=== PATIENT | female | born 1975 | race Hispanic/Latino ===

== ENCOUNTER 2020-08-18 08:21 | Emergency (ER) | payer SELFPAY ==
[2020-08-18] MEDS ORDERED: Ondansetron PF 4 MG/2 ML Vial ONE (08:50)
[2020-08-18] MEDS ORDERED: Morphine 4 MG/ML VIAL ONE (08:50)
[2020-08-18 09:19] LABS: Bilirubin Negative (Negative); Blood, Urine 3+ (Negative); Clarity Clear (Clear); Glucose, Urine (Dipstick) Normal (Negative); Ketone, Urine Negative (Negative); Leukocyte 25 Leu/uL (Negative); Nitrite Negative (Negative); Protein, Urine (Dipstick) 20 mg/dL (Neg-Trace); RBC/HPF 0-3 HPF (0-3); Specific Gravity, Urine 1.004 (1.002-1.036); Squamous Epithelial 0-3 HPF (0-3); Urobilinogen Normal mg/dL (Less than 2); WBC/HPF 0-3 HPF (0-3); pH, Urine 5.5 (5.0-9.0)
[2020-08-18 09:27] LABS: Bacteria/HPF 1+ HPF (None Seen)
[2020-08-18 09:30] LABS: Pregnancy Test - Urine (BHCG) Negative (Negative); Pregu Control Background? CLEAR/WHITE (CLR/WHITE); Pregu Control Bar Appear? YES (CONTROL BAR); Specific Gravity 1.004 (1.002-1.036)
[2020-08-18 09:32] LABS: #Basophils 0.1 thou/uL (0.0-0.2); #Eosinphils 0.1 thou/uL (0.0-0.7); #Lymphocytes 2.1 thou/uL (1.20-3.40); #Monocytes 0.5 thou/uL (0.11-0.59); #Neutrophils 5.2 thou/uL (1.40-6.50); %Basophils 0.7 % (0.0-1.0); %Eosinophils 1.5 % (0.0-10.0); %Lymphocytes 26.6 % (21.0-51.0); %Monocytes 5.7 % (0.0-10.0); %Neutrophils 65.4 % (42.0-75.0); Hemoglobin 9.9 g/dL (12.0-16.0); Mean Corpuscular HGB CONC 32.9 g/dL (32.0-36.0); Mean Platelet Volume 8.1 fL (7.4-10.4); Platelet Count 301 thou/uL (130-400); RBC Distribution Width 15.1 % (11.5-14.5); Red Blood Cell (RBC) Count 3.65 mill/uL (4.20-5.40)
[2020-08-18 09:51] LABS: ALT (SGPT) 24 U/L (8-55); AST (SGOT) 27 U/L (5-34); Albumin 3.8 g/dL (3.5-5.0); Alkaline Phosphatase 73 U/L (40-110); Anion Gap 13 mmol/L (10-20); BUN (Urea Nitrogen) 10 mg/dL (7.0-18.7); Bilirubin, Total 0.3 mg/dL (0.2-1.2); Calc. Creatinine Clearance 0 mL/min (70-130); Calcium 8.4 mg/dL (7.8-10.44); Carbon Dioxide 22 mmol/L (22-29); Chloride 107 mmol/L (98-107); Estimated GFR-MDRD 88; Globulin 2.9 g/dL (2.4-3.5); Glucose 99 mg/dL (70-105); Lipase 35 U/L (8-78); Protein, Total 6.7 g/dL (6.0-8.3); Sodium 138 mmol/L (136-145)
--- NOTE | 2020-08-18 11:03 | ULT ---
TRANSABDOMINAL AND TRANSVAGINAL PELVIC ULTRASOUND WITH SIERRA SCALE AND COLOR FLOW AND SPECTRAL DOPPLER IMAGING: Date: 08/18/2020 HISTORY: Pelvic pain. Right lower quadrant pain. Vaginal bleeding. FINDINGS: The right ovary measures 6.2 x 3.8 x 6.0 cm. The left ovary measures 3.2 x 3.9 x 1.8 cm. The uterus m easures 10.6 x 5.4 x 5.8 cm. The endometrium measures 1.6 cm in thickness. No uterine mass or endometrial fluid is seen. Flow is demonstrated to both ovaries. There is a complex cystic mass arising from the right ovary with solid mural nodule. This mass measur es about [id number]. No free fluid is noted. There is a small amount of fluid in the cervix. IMPRESSION: 1. Large complex cystic right ovarian mass is suspicious for neoplasm. 2. Thickening of the endometrium with a small amount of fluid in the cervix. 3. Gynecologic consultation is recommended. POS: AMINATA
[2020-08-21 21:11] LABS: Chlamydia by PCR Inconclusive (NotDetected); GC by PCR Inconclusive (NotDetected)
== END 2020-08-18 11:45 | disposition home or self-care (01) ==
LOC: ERS 08:21
DX: N93.8 Other specified abnormal uterine and vaginal bleeding (principal); D64.9 Anemia, unspecified; Z79.899 Other long term (current) drug therapy; M79.7 Fibromyalgia
CPT/HCPCS: 76856; 80053; 81003; 81015; 81025; 83690; 85025; 87480; 87491; 87510; 87591; 87660; 96361; 96374; 96375; J2270; J2405

== ENCOUNTER 2020-08-21 11:46 | Observation (INO) | payer SELFPAY ==
[~2020-08-21 11:46] MED LIST: Dexamethasone 20 MG/5 ML VIAL ONE; Glycopyrrolate 0.2 MG/ML 5 ML SYRINGE ONE; Lidocaine 1% PF 5 ML VIAL ONE; Ondansetron PF 4 MG/2 ML Vial ONE; PHENYLEPHRINE-NS 100 MCG/ML 10 ML SYRINGE ONE; PROPOFOL 200 MG/20 ML VIAL ONE; Rocuronium Bromide 10 MG/ML (10ML VIAL) ONE; Succinylcholine 200 MG/10 ml SYRINGE FS ONE; ePHEDrine 50 MG/ML VIAL ONE
[2020-08-21 13:31] LABS: #Basophils 0.1 thou/uL (0.0-0.2); #Eosinphils 0.1 thou/uL (0.0-0.7); #Lymphocytes 2.1 thou/uL (1.20-3.40); #Monocytes 0.3 thou/uL (0.11-0.59); #Neutrophils 6.9 thou/uL (1.40-6.50); %Basophils 0.8 % (0.0-1.0); %Eosinophils 0.7 % (0.0-10.0); %Lymphocytes 22.5 % (21.0-51.0); %Monocytes 3.5 % (0.0-10.0); %Neutrophils 72.5 % (42.0-75.0); Hemoglobin 8.2 g/dL (12.0-16.0); Mean Corpuscular HGB CONC 32.3 g/dL (32.0-36.0); Mean Corpuscular Hemoglobin 26.9 pg (27.0-31.0); Mean Corpuscular Volume 83.1 fL (78.0-98.0); Mean Platelet Volume 7.3 fL (7.4-10.4); Platelet Count 357 thou/uL (130-400); RBC Distribution Width 15.4 % (11.5-14.5); Red Blood Cell (RBC) Count 3.05 mill/uL (4.20-5.40); White Blood Cell (WBC) Count 9.4 thou/uL (4.8-10.8)
[2020-08-21 13:54] LABS: ALT (SGPT) 15 U/L (8-55); AST (SGOT) 19 U/L (5-34); Albumin 3.7 g/dL (3.5-5.0); Alkaline Phosphatase 69 U/L (40-110); Anion Gap 13 mmol/L (10-20); BUN (Urea Nitrogen) 6 mg/dL (7.0-18.7); Bilirubin, Total 0.3 mg/dL (0.2-1.2); Calc. Creatinine Clearance 0 mL/min (70-130); Calcium 8.1 mg/dL (7.8-10.44); Carbon Dioxide 22 mmol/L (22-29); Chloride 108 mmol/L (98-107); Globulin 2.8 g/dL (2.4-3.5); Glucose 96 mg/dL (70-105); Potassium 3.6 mmol/L (3.5-5.1); Protein, Total 6.5 g/dL (6.0-8.3); Sodium 139 mmol/L (136-145)
[2020-08-21] MEDS ORDERED: Morphine 4 MG/ML VIAL ONE (14:16)
[2020-08-21] MEDS ORDERED: Ondansetron PF 4 MG/2 ML Vial ONE (14:16)
[2020-08-21 14:39] LABS: Bacteria/HPF None Seen HPF (None Seen); Bilirubin Negative (Negative); Blood, Urine 3+ (Negative); Clarity Clear (Clear); Glucose, Urine (Dipstick) Normal (Negative); Ketone, Urine Negative (Negative); Leukocyte Negative Leu/uL (Negative); Nitrite Negative (Negative); Protein, Urine (Dipstick) Negative (Neg-Trace); RBC/HPF 21-50 HPF (0-3); Specific Gravity, Urine 1.006 (1.002-1.036); Squamous Epithelial 0-3 HPF (0-3); Urobilinogen Normal mg/dL (Less than 2); WBC/HPF 0-3 HPF (0-3)
[2020-08-21 14:42] LABS: Pregnancy Test - Urine (BHCG) Negative (Negative); Pregu Control Background? CLEAR/WHITE (CLR/WHITE); Pregu Control Bar Appear? YES (CONTROL BAR); Specific Gravity 1.006 (1.002-1.036)
[2020-08-21 14:44] LABS: Prothrombin Time 13.8 sec (12.0-14.7)
[2020-08-21 14:45] LABS: PTT 32.9 sec (22.9-36.1)
--- NOTE | 2020-08-21 15:27 | ULT ---
Exam: Pelvic ultrasound HISTORY: Right-sided ovarian/adnexal mass. Worsening pain and bleeding. COMPARISON: Pelvic ultrasound 08/18/2020 TECHNIQUE: Multiple grayscale and color Doppler images were obtained in a transabdominal pelvic ultra sound. Spectral analysis of the Doppler waveforms of the ovaries were performed. FINDINGS: CERVIX: Not well assessed on transabdominal imaging but grossly within normal limits where seen. UTERUS: Normal in size without focal abnormality. ENDOMETRIAL STRIPE: 13 mm which is within normal limits for a normal menstruating female patient. No fluid or fluid collection is seen in the endometrial canal. No free fluid is present. RIGHT OVARY: A 6.2 cm x 5.5 cm x 5.2 cm cystic mass is again seen in the right adnexal region, and th is mass previously measured 6.2 cm x 3.8 cm x 5.9 cm. Doppler evaluation does demonstrate arterial flow at the periphery of this cystic lesion likely related to flow in surrounding ovarian tissue in t his region. LEFT OVARY:Not visualized. Patient refused transvaginal imaging at this time due to pain. IMPRESSION: 1. Persistent right adnexal/ovarian mass. Neoplastic process is diagnosis of exclusion. 2. Nonvisualization left ovary. 3. Endometrial stripe measures 13 mm without fluid or fluid collection endometrial canal. Endometrial stripe thickness is within normal limits for normal menstruating female patient, but this is abnormal in thickness if this is a postmenopausal female patient. 4. Gynecological consultation is recommended if this has not been performed.
[2020-08-21] MEDS ORDERED: Lidocaine 1% w/Epinephrine 1:100K 20 ML VIAL ONE (18:03)
[2020-08-21] MEDS ORDERED: Bupivacaine 0.25% HCL 30 ML VIAL ONE (18:03)
[2020-08-21] MEDS ORDERED: Fentanyl 100 MCG/2 ML VIAL ONE ×3 (18:23→21:09)
[2020-08-21] MEDS ORDERED: Midazolam HCl 2 mg/2 ml Vial ONE (18:23)
[2020-08-21 18:55] LABS: SARS-CoV-2 NAA Rapid Test Not Detected (NotDetected)
[2020-08-21] MEDS ORDERED: HYDROcodone/Acetaminophen 5/325 mg Tablet ONE (21:50)
[2020-08-21] MEDS ORDERED: Ketorolac Tromethamine 30 MG/ML VIAL IVP PRN (22:37)
[2020-08-21] MEDS ORDERED: traMADol HCl 50 MG TAB PO PRN ×2 (22:39)
[2020-08-21] MEDS ORDERED: diphenhydrAMINE 50 MG/ML VIAL IVP PRN (22:42)
[2020-08-21] MEDS ORDERED: Ondansetron PF 4 MG/2 ML Vial IVP PRN (22:42)
--- NOTE | 2020-08-21 22:42 | PDOC.EVN ---
Event Note - Event Note Event Note: Pt is post surgical. Difficult to arouse. Otherwise stable. Will keep here tonight for pad counts, cbc in the morning and extended post surgical care. PT had a 1.7pt drop in hgb over two days. Will repeat in AM. Anticipate DC in morning.
[2020-08-21 23:30] VITALS: BMI 33.4
--- NOTE | 2020-08-22 00:57 | OP ---
DATE OF PROCEDURE: 08/21/2020 INDICATION: The patient is a 45-year-old female who was sent from clinic by Dr. Calixto to the emergency room for acute pelvic pain. She was there in the clinic for evaluation of abnormal uterine bleeding x6 weeks and pelvic pain that she had for 6 days. After receiving an endometrial biopsy, patient acutely noted worsening pain and was directed to the emergency room. Here, on evaluation in the emergency room, the patient was noted to have a 7 cm adnexal mass. Given the pain that she is experiencing, there was concern that she was experiencing ovarian torsion. Given that and her bleeding, the patient was taken to the operating room for evaluation and treatment. PREOPERATIVE DIAGNOSES: 1. Acute pelvic pain. 2. Adnexal mass. 3. Abnormal uterine bleeding. POSTOPERATIVE DIAGNOSES: 1. Acute pelvic pain. 2. Adnexal mass. 3. Abnormal uterine bleeding. PROCEDURE: Diagnostic laparoscopy with right oophorectomy and diagnostic hysteroscopy. ANESTHESIA: General. ESTIMATED BLOOD LOSS: Less than 25 mL. URINE OUTPUT: 400 mL. HYSTEROSCOPIC FLUID: Normal saline with accounted I's and O's. FINDINGS: Large right cystic adnexal mass without any definitive evidence of torsion. Absent tubes due to prior bilateral salpingectomy and normal-appearing uterus. SPECIMENS: Right ovary and cystic mass. COUNTS: Correct. COMPLICATIONS: None. DESCRIPTION OF PROCEDURE: Ms. Cardenas was placed in dorsal lithotomy position after being placed under general anesthesia. She was prepared and draped in a normal sterile fashion. Attention was placed vaginally where with the aid of an operative speculum, the cervix was identified. A single-tooth tenaculum was used to grasp the anterior lip of the cervix and a [employer] uterine manipulator was then inserted into the cervix. Attention was placed abdominally, where a 5 mm skin incision was made in the base of the umbilicus. A 12 mm incision was made in the suprapubic region and another 5 mm incision was made in the left lateral region of the pelvis. Veress needle was introduced into the base of the umbilicus with an entry pressure of 3 mmHg. The abdomen was insufflated with CO2 gas to 15 mmHg. A 5 mm port was then introduced with proper placement confirmed by laparoscope. An 11 mm trocar was then placed under direct visualization as was a left lateral port. The patient was then placed in steep Trendelenburg, removing the bowel from the pelvis. Immediately became visible was a large adnexal structure, primarily cystic, that was free of adhesions or evidence of torsion. Given that this is her second episode on this side, decision was made to perform an oophorectomy. Of note, there were no tubes. The majority of the tube was absent on both sides of the uterus. With a ligature device, the cyst and most of the ovary were ligated and transected. The cyst was then placed into a 10 mm EndoCatch bag intact, where it was then punctured and clear cystic fluid was then sucked out through the suction director facilities maintenance. The bag was then removed through the suprapubic port with some mild extension of the fascia given the size of the ovary and solid structure. Back to the inspection of the adnexal region showed good hemostasis. The left ovary appeared to be appropriate for age, reduced in size and volume, but without any evidence of concern. The uterus appeared smooth. Appendix did not appear visible. The liver edge was smooth. Once all this was visualized, the suprapubic fascial incision was then closed under direct visualization with a single stitch of 0 Vicryl and then the skin was closed with 4-0 Monocryl all three sites. Attention was then placed vaginally where hysteroscopy was performed to identify the uterine contents. Operative speculum was placed, and with a straight 0 degree hysteroscope with normal saline, the uterus was then visualized. Both ostia were seen. There appeared to be some shaggy endometrium, but no clear lesions. At this point, this was the completion of the procedure. The patient was extubated and taken to recovery room in stable condition. Job ID: [id number]
[2020-08-22 05:37] LABS: Hemoglobin 7.9 g/dL (12.0-16.0); Mean Corpuscular HGB CONC 33.3 g/dL (32.0-36.0); Mean Corpuscular Hemoglobin 27.5 pg (27.0-31.0); Mean Corpuscular Volume 82.7 fL (78.0-98.0); Mean Platelet Volume 7.6 fL (7.4-10.4); Platelet Count 340 thou/uL (130-400); RBC Distribution Width 15.2 % (11.5-14.5); Red Blood Cell (RBC) Count 2.88 mill/uL (4.20-5.40); White Blood Cell (WBC) Count 16.5 thou/uL (4.8-10.8)
[2020-08-22] MEDS ORDERED: Sodium Chloride 0.9% 10 ML ONE (05:45)
[2020-08-22 08:23] VITALS: BP 103/58; TEMP 98.2
[2020-08-22] MEDS ORDERED: FLU VACC QS2020-21(6MOS UP)/PF 60 MCG/0.5 ML SYRINGE IM ONE (09:00)
--- NOTE | 2020-08-22 19:36 | DIS ---
DATE OF ADMISSION: 08/21/2020 DATE OF DISCHARGE: 08/22/2020 ADMITTING DIAGNOSES: 1. Abnormal uterine bleeding with blood loss anemia. 2. Pelvic pain. 3. Adnexal mass. DISCHARGE DIAGNOSES: 1. Abnormal uterine bleeding with blood loss anemia. 2. Pelvic pain. 3. Adnexal mass. PROCEDURES: Diagnostic laparoscopy with right oophorectomy and hysteroscopy. CONSULTATIONS: None. HOSPITAL COURSE: The patient is a 45-year-old female re-presented to the emergency room after being seen in the clinic for acute abdominal pain. The patient's evaluation revealed a large right adnexal mass that is stable, but present as compared to another ER visit a few days prior. The patient continued to have heavy bleeding requiring 5 to 6 saturated pads a day for the previous month and had a hemoglobin drop over the 3-day period from 9.9 to 8.2. This morning, it has dropped to 7.9 over a subsequent almost 15 hours. For complete dropped details for the procedure, please refer to the operative note. Last night, the patient was transferred up to the floor for observation and pad counts given the amount of blood loss she has had and her anemia and for postop recovery. This morning, the patient is awake and alert. She has had food to eat. 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 Most recent vital signs, blood pressure is 101/59, pulse of 107, temperature 97.9, and respiratory rate of 20. In general, she appears to be in no acute distress. She is alert, oriented, cooperative, and pleasant to interact with. Her incisions are clean, dry, and intact. The patient is being discharged home. She has instructions to seek medical attention if she experiences fever, increasing pain, bleeding, redness, or drainage from her incision site. 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 She has also been counseled for lifting limits for few weeks as her suprapubic incision has required an intermittent stitch for proper closure. She will be following up with Dr. Calixto in 2 weeks, though significantly anemic at 7.9 and 23.8. It seems to have stabilized and clinically appears to be tolerable. I do not know her hemoglobin baseline as she presented with heavy bleeding. They have been going on for a month when she had a hemoglobin of 9.9. The patient will be instructed to be on iron for at least the next 6 months in an effort to restore iron stores and increase her hemoglobin back to normal. She will be going home on ibuprofen and tramadol for pain control. Job ID: [id number]
== END 2020-08-22 09:05 | disposition home or self-care (01) ==
LOC: ERS 11:46 → UNDOADMOB 15:53 → 3SE 15:53
PROVIDERS: ADMIT Family Medicine; ATTEND Family Medicine
PROC: 0UT04ZZ Resection of Right Ovary, Percutaneous Endoscopic Approach (ICD-10-PCS; principal; 2020-08-21)
PROC: 0UJD8ZZ Inspection of Uterus and Cervix, Via Natural or Artificial Opening Endoscopic (ICD-10-PCS; 2020-08-21)
DX: D27.0 Benign neoplasm of right ovary (principal); N83.8 Other noninflammatory disorders of ovary, fallopian tube and broad ligament; N93.9 Abnormal uterine and vaginal bleeding, unspecified; D62 Acute posthemorrhagic anemia; M79.7 Fibromyalgia; F32.9 Major depressive disorder, single episode, unspecified; Z79.899 Other long term (current) drug therapy; Z20.828 Contact with and (suspected) exposure to other viral communicable diseases
CPT/HCPCS: 36415; 76856; 80053; 81003; 81015; 81025; 85025; 85027; 85610; 85730; 86850; 86900; 86901; 88307; 93976; 96374; 96375; G0378; J1100; J1885; J2250; J2270; J2405; J2704; J3010; J3490; S0020; U0002

== ENCOUNTER 2020-12-28 15:19 | Emergency (ER) | payer OTHER, SELFPAY ==
[~2020-12-28 15:19] MED LIST changes: -Dexamethasone 20 MG/5 ML VIAL ONE; -Glycopyrrolate 0.2 MG/ML 5 ML SYRINGE ONE; +Iopamidol-370 76% 500 ML 1 ML ONE; -Lidocaine 1% PF 5 ML VIAL ONE; -Ondansetron PF 4 MG/2 ML Vial ONE; -PHENYLEPHRINE-NS 100 MCG/ML 10 ML SYRINGE ONE; -PROPOFOL 200 MG/20 ML VIAL ONE; -Rocuronium Bromide 10 MG/ML (10ML VIAL) ONE; -Succinylcholine 200 MG/10 ml SYRINGE FS ONE; -ePHEDrine 50 MG/ML VIAL ONE
[2020-12-28 15:44] LABS: #Basophils 0.1 thou/uL (0.0-0.2); #Eosinphils 0.1 thou/uL (0.0-0.7); #Lymphocytes 2.4 thou/uL (1.20-3.40); #Monocytes 0.5 thou/uL (0.11-0.59); %Basophils 0.8 % (0.0-1.0); %Eosinophils 1.5 % (0.0-10.0); %Lymphocytes 29.4 % (21.0-51.0); %Monocytes 6.2 % (0.0-10.0); %Neutrophils 62.1 % (42.0-75.0); Hemoglobin 13.8 g/dL (12.0-16.0); Mean Corpuscular HGB CONC 33.2 g/dL (32.0-36.0); Mean Corpuscular Hemoglobin 28.6 pg (27.0-31.0); Mean Platelet Volume 8.7 fL (7.4-10.4); Platelet Count 278 thou/uL (130-400); Red Blood Cell (RBC) Count 4.82 mill/uL (4.20-5.40)
[2020-12-28 15:47] LABS: Bilirubin Negative (Negative); Blood, Urine Negative (Negative); Clarity Turbid (Clear); Glucose, Urine (Dipstick) Normal (Negative); Ketone, Urine Negative (Negative); Leukocyte Negative Leu/uL (Negative); Nitrite Negative (Negative); Protein, Urine (Dipstick) Negative (Neg-Trace); Specific Gravity, Urine 1.018 (1.002-1.036); Urobilinogen Normal mg/dL (Less than 2); pH, Urine 7.5 (5.0-9.0)
[2020-12-28 15:49] LABS: Pregnancy Test - Urine (BHCG) Negative (Negative); Pregu Control Background? CLEAR/WHITE (CLR/WHITE); Pregu Control Bar Appear? YES (CONTROL BAR); Specific Gravity 1.018 (1.002-1.036)
[2020-12-28 16:05] LABS: ALT (SGPT) 60 U/L (8-55); AST (SGOT) 54 U/L (5-34); Alkaline Phosphatase 99 U/L (40-110); Anion Gap 14 mmol/L (10-20); BUN (Urea Nitrogen) 12 mg/dL (7.0-18.7); Bilirubin, Total 0.3 mg/dL (0.2-1.2); Calc. Creatinine Clearance 0 mL/min (70-130); Calcium 8.8 mg/dL (7.8-10.44); Carbon Dioxide 24 mmol/L (22-29); Chloride 103 mmol/L (98-107); Globulin 3.4 g/dL (2.4-3.5); Glucose 96 mg/dL (70-105); Lipase 43 U/L (8-78); Potassium 3.8 mmol/L (3.5-5.1); Protein, Total 7.4 g/dL (6.0-8.3); Sodium 137 mmol/L (136-145)
[2020-12-28] MEDS ORDERED: Morphine 4 MG/ML VIAL ONE (16:40)
[2020-12-28] MEDS ORDERED: Ondansetron PF 4 MG/2 ML Vial ONE (17:00)
[2020-12-28] MEDS ORDERED: Ketorolac Tromethamine 30 MG/ML VIAL ONE (17:05)
== END 2020-12-28 19:00 | disposition home or self-care (01) ==
LOC: ERS 15:19
DX: R79.89 Other specified abnormal findings of blood chemistry (principal); R10.2 Pelvic and perineal pain; M79.7 Fibromyalgia; Z79.899 Other long term (current) drug therapy
CPT/HCPCS: 36415; 74177; 80053; 81003; 81025; 83690; 85025; 96374; 96375; J1885; J2270; J2405; Q9967